=== PATIENT | male | born 2000 | race Caucasian/White ===

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

== ENCOUNTER 2021-05-17 15:14 | Emergency (ER) | payer MEDICAID ==
[~2021-05-17] VITALS: Ht 175.3 cm; Wt 78.2 kg
[~2021-05-17 15:14] MED LIST: FLEXERIL 1010 MG/TAB PO
[2021-05-17 15:22] VITALS: BP 135/84; PULSE 73; TEMP 97.9
== END 2021-05-17 16:39 | disposition home or self-care (01) ==
LOC: COL.ER 15:14
DX: S51.812A Laceration without foreign body of left forearm, initial encounter (principal); W26.0XXA Contact with knife, initial encounter

== ENCOUNTER → 2022-05-12 | Outpatient (CLI) | payer MEDICAID | LOC: COL.LAB 09:50 | DX: Z20.822 Contact with and (suspected) exposure to COVID-19 (principal) ==